=== PATIENT | male | born 1980 | race Caucasian/White ===

== ENCOUNTER 2018-07-21 09:11 | Day surgery (SDC) | payer OTHER ==
[2018-07-14 13:24] LABS: BILIRUBIN,URINE NEGATIVE (NEGATIVE); CLARITY/URINE CLEAR (CLEAR); COLOR,URINE YELLOW (YELLOW); GLUCOSE,URINE NEGATIVE (NEGATIVE); KETONES,URINE NEGATIVE (NEGATIVE); LEUKOCYTE ESTERASE ,URINE NEGATIVE (NEGATIVE); NITRITE, URINE NEGATIVE (NEGATIVE); PH,URINE 6.5 (5.0-8.0); PROTEIN URINE TRACE (NEGATIVE)
[2018-07-14 13:25] LABS: BLOOD, URINE TRACE (NEGATIVE)
[2018-07-14 13:39] LABS: BACTERIA,URINE FEW /HPF (None Seen); WBC,URINE 0-3 /HPF (0-3)
[2018-07-14 13:40] LABS: MUCUS,URINE None Seen /LPF (None Seen); YEAST,URINE None Seen /HPF (None Seen)
[2018-07-14 13:52] LABS: CALCIUM 9.2 mg/dL (8.4-11.0); CREATININE 0.85 mg/dL (0.55-1.30); INR 1.1 (0.80-1.20); POTASSIUM 4.3 mmol/L (3.5-5.1); PROTHROMBIN TIME 11.1 SECS (9.5-12.5)
[2018-07-14 14:08] LABS: HEMATOCRIT 50.5 % (36-54); MEAN CORPUSCULAR HEMOGLOBIN 32 pg (27-31); MEAN CORPUSCULAR HGB CONC 34 % (32-36); MEAN CORPUSCULAR VOLUME 96 fL (79.0-98.0); PLATELET COUNT (AUTO) 337 K/uL (130-430); RED BLOOD CELL COUNT(AUTO) 5.29 MIL/uL (4.2-6.2); RED CELL DISTRIBUTION WIDTH 12.9 % (9.0-15.0); WHITE BLOOD COUNT (AUTO) 6.9 K/uL (4.8-10.8)
[2018-07-14 14:36] LABS: ATYPICAL LYMPHOCYTES % 0 % (0-0); BAND % (MANUAL) 2 % (0-6); BASOPHILS % (MANUAL) 0 % (0-2); EOSINOPHILS % (MANUAL) 2 % (0-7); LYMPHOCYTES % (MANUAL) 28 % (20-46); MONOCYTES % (MANUAL) 6 % (0-11)
[~2018-07-21] VITALS: Ht 167.6 cm; Wt 90.7 kg
[~2018-07-21 09:11] MED LIST: CEFAZOLIN SOD 2 GM in D5W 50 ML IV ONE
[2018-07-21] MEDS ORDERED: KETOROLAC TROMETHAMINE 30 MG VIAL IVP ONE (11:35)
[2018-07-21] MEDS ORDERED: ONDANSETRON HCL 4 MG/2 ML VIAL IVP ONE (11:35)
[2018-07-21] MEDS ORDERED: LR 1,000 ML IV.SOLN IV ONE (11:35)
[2018-07-21] MEDS ORDERED: ROCURONIUM BROMIDE 10 MG/ML (ZEMURON) IV ONE (11:35)
[2018-07-21] MEDS ORDERED: fentaNYL CITRATE 250 MCG/5 ML AMP IV ONE (11:35)
[2018-07-21] MEDS ORDERED: PROPOFOL 200MG/ 20ML VIAL (DIPRIVAN) IV ONE (11:35)
[2018-07-21] MEDS ORDERED: NS 1000 ML IV.SOLN IV ONE (11:35)
[2018-07-21] MEDS ORDERED: MIDAZOLAM HCL 5 MG/5 ML VIAL IVP ONE (11:35)
[2018-07-21] MEDS ORDERED: SEVOFLURANE 15 MIN GAS INH ONE (11:35)
[2018-07-21] MEDS ORDERED: LR 1,000 ML IV SCH (12:11)
[2018-07-21] MEDS ORDERED: MORPHINE 4 MG/ML INJ. SYRINGE IVP PRN ×3 (12:15)
[2018-07-21] MEDS ORDERED: BACITRACIN ZINC 15 GM TOPICAL OINTMENT TP ONE (12:22)
[2018-07-21] MEDS ORDERED: BUPIVACAINE /PF 0.25% 30 ML VIAL INJ ONE (12:23)
[2018-07-21 13:25] VITALS: BP_SYST 122
== END 2018-07-21 16:20 | disposition home or self-care (01) ==
LOC: SDS 09:11 → SMU 09:14 → SDS 16:20
PROVIDERS: ATTEND Urology
DX: N47.1 Phimosis (principal); N39.0 Urinary tract infection, site not specified; E66.01 Morbid (severe) obesity due to excess calories; Z79.899 Other long term (current) drug therapy
CPT/HCPCS: 36415; 54161; 80048; 81000; 85007; 85027; 85610; 85730; 88304; J0690; J1885; J2250; J2405; J2704; J3010; J3490; J7030; J7060; J7120